=== PATIENT | male | born 1990 | race Two or more races ===

== ENCOUNTER 2017-09-18 02:03 | Emergency (ER) | payer OTHER ==
[~2017-09-18] VITALS: Ht 182.9 cm; Wt 68.0 kg
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
[2017-09-18] MEDS ORDERED: IBUPROFEN 400 MG TABLET ONE (02:27)
[2017-09-18] MEDS ORDERED: IBUPROFEN 400 MG TABLET PO ONE (02:30)
[2017-09-18 03:20] VITALS: BP 121/79
--- NOTE | 2017-09-18 03:21 | NUR ---
PT ACI AND PRESCRIPTION GIVEN TO OFFICER RANDALL WITH THE [employer], PT IN CUSTODY WITH OFFICER RANDALL
== END 2017-09-18 03:22 ==
LOC: ER 02:06
DX: S90.01XA Contusion of right ankle, initial encounter (principal); F17.200 Nicotine dependence, unspecified, uncomplicated; Z86.19 Personal history of other infectious and parasitic diseases; W22.8XXA Striking against or struck by other objects, initial encounter; Y93.89 Activity, other specified; Y92.89 Other specified places as the place of occurrence of the external cause; Y99.8 Other external cause status
CPT/HCPCS: 73610-TC; A4606; Z7610

== ENCOUNTER 2020-07-19 15:13 | Emergency (ER) | payer OTHER ==
[~2020-07-19] VITALS: Ht 182.9 cm; Wt 83.9 kg
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
--- NOTE | 2020-07-19 17:30 | NUR ---
pt refusing blood draw and iv insertion. dr. hi made aware.
--- NOTE | 2020-07-19 17:52 | NUR ---
pt wants to leave [facility], does not want to do the blood draw and insertion.
[2020-07-19 18:04] VITALS: BP 132/66
== END 2020-07-19 18:05 ==
LOC: ER 15:16
DX: R56.9 Unspecified convulsions (principal); F19.10 Other psychoactive substance abuse, uncomplicated; R94.31 Abnormal electrocardiogram [ECG] [EKG]; Z86.19 Personal history of other infectious and parasitic diseases
CPT/HCPCS: 70450-TC; 71045-TC; 72125-TC

== ENCOUNTER 2021-05-15 22:22 | Emergency (ER) | payer SELFPAY ==
[~2021-05-15] VITALS: Ht 182.9 cm; Wt 77.1 kg
[2021-05-16] MEDS ORDERED: VANCOMYCIN 1 GM in IV D5W 250 ML IV ONE
[2021-05-16] MEDS ORDERED: PIPERACILLIN /TAZOBACTAM 3.375 G in IV D5W 50 ML IV ONE
[2021-05-16] MEDS ORDERED: VANCOMYCIN 1 GM VIAL ONE (00:16)
[2021-05-16] MEDS ORDERED: PIPERACILLIN /TAZOBACTAM 3.375 G VIAL IV ONE (00:16)
[2021-05-16 00:23] LABS: BASOPHILS % (AUTO) 0.3 % (0.0-2.0); EOSINOPHILS % (AUTO) 1.2 % (0.0-6.0); HEMATOCRIT 41 % (39-51); HEMOGLOBIN 14.2 g/dL (13.5-17.5); LYMPHOCYTES # (AUTO) 1.6 K/uL (0.8-4.8); LYMPHOCYTES % (AUTO) 20.6 % (20.0-44.0); MEAN CORPUSCULAR HGB CONC 34 g/dl (31.0-36.0); MEAN CORPUSCULAR VOLUME 96 fL (80-96); MONOCYTES # (AUTO) 0.8 K/uL (0.1-1.30); MONOCYTES % (AUTO) 10.4 % (2.0-12.0); NEUTROPHILS # (AUTO) 5.3 K/uL (1.8-8.9); NEUTROPHILS % (AUTO) 67.5 % (43.0-81.0); PLATELET COUNT (AUTO) 266 K/uL (150-450); RED BLOOD CELL COUNT(AUTO) 4.32 MIL/uL (4.5-6.0); WHITE BLOOD COUNT (AUTO) 7.8 K/uL (4.3-11.0)
[2021-05-16 00:32] LABS: CALCIUM, SERUM 8.7 mg/dL (8.5-10.1); CREATININE 0.9 mg/dL (0.6-1.3); POTASSIUM 3.9 mmol/L (3.5-5.1)
[2021-05-16] MEDS ORDERED: IV NS 0.9% 250 ML IV ONE (00:38)
[2021-05-16] MEDS ORDERED: IOHEXOL-300 100 ML VIAL IV ONE (00:38)
[2021-05-16] MEDS ORDERED: LIDOCAINE 1%-EPI 1:100,000 20 ML VIAL ONE (01:27)
[2021-05-16] MEDS ORDERED: CEFTRIAXONE 1 G VIAL IM ONE (01:30)
[2021-05-16] MEDS ORDERED: SULFAMETH/TRIMETH 800/160 MG 1 UDTAB TABLET PO ONE (01:30)
[2021-05-16] MEDS ORDERED: SULFAMETH/TRIMETH 800/160 MG 1 UDTAB TABLET ONE (01:33)
[2021-05-16] MEDS ORDERED: LIDOCAINE HCL/MPF 1% 30 ML VIAL IJ ONE (01:47)
--- NOTE | 2021-05-16 01:52 | NUR ---
PT REFUSED TO GET IV ANTIBIOTICS WELL A IV SALINE LOCK. AMA SIGNED AND DR OWENS IS AWARE.
[2021-05-16] MEDS ORDERED: SULF1TAB48 PO (02:03)
[2021-05-16] MEDS ORDERED: CEPH500C2 PO (02:03)
[2021-05-16 02:11] VITALS: BP 147/82
--- NOTE | 2021-05-16 02:11 | NUR ---
Patient discharged to home in stable condition. Written and verbal after care instructions given. Patient verbalizes understanding of instruction. RX given
== END 2021-05-16 02:13 | disposition home or self-care (01) ==
LOC: ER 22:32
DX: L02.01 Cutaneous abscess of face (principal); H00.033 Abscess of eyelid right eye, unspecified eyelid; F17.200 Nicotine dependence, unspecified, uncomplicated; Z79.899 Other long term (current) drug therapy
CPT/HCPCS: 10060; 36415; 80048; 85025; 87040 ×2; 99283; J2543 ×2; J3370; J3490 ×2; J7050; J7060; Q9967